=== PATIENT | female | born 1970 | race African-American/Black ===

== ENCOUNTER 2016-10-01 03:46 | Emergency (ER) | payer OTHER, BC | END 2016-10-01 05:58 | disposition home or self-care (01) | LOC: ER 03:46 | DX: M54.6 Pain in thoracic spine (principal); I10 Essential (primary) hypertension; Z88.8 Allergy status to other drugs, medicaments and biological substances | CPT/HCPCS: 72072; 96372; 99284; J1885; J2360 ==